=== PATIENT | male | born 1945 | race Caucasian/White ===

== ENCOUNTER → 2016-07-26 | Outpatient (CLI) | payer MEDICARE, BC ==
--- NOTE | ~2016-07-26 | PUL ---
PATIENT'S NAME: ETHEL HIGGINS [facility] AGE: 71 Y [address] ROOM: [place] [address] LOCATION: [facility] ADMIT DATE: 07/26/2016 Pulmonary DISCHARGE DATE: FAMILY PHYSICIAN: Andry Hi MD ATTENDING PHYSICIAN: Porter Suarez NAME OF PROCEDURE: Sleep study PROCEDURE DATE: 07/26/16 TECH: KINZA Bauman TEST #: [facility] [place]# [id number] TECHNICAL PARAMETERS: The patient was studied using [employer] 10/20 measuring system. While the patient was studied, there was continuous monitoring of EEG (8 leads), EOG (2 leads), EKG (3 leads), submental EMG (3 leads), tibial (4 leads), respiratory inductive plethysmography (RIP) for thoracic and abdominal effort, oral and nasal airflow with a thermocouple and pressure transducer, and oximetry. The statistical technician also performed visual and auditory observations noting things like body position, patient's status, breath sounds, artifact, snoring level and patient comments. Continuous sound was monitored using a 2-way speaker system and video monitoring was performed using an infrared camera. Review of the entire study was performed epoch by epoch utilizing a single epoch and multiple epoch capability sleep system. MEDICAL HISTORY: The patient is a 70-year-old gentleman with daytime sleepiness and snoring. SLEEP STAGE SUMMARY: The patient was studied for 509 minutes of which he slept 395 minutes. He fell asleep in 6 minutes and slept for 77% of the night. Sleep architecture revealed a decline in slow wave and REM sleep. RESPIRATORY SUMMARY: Oxygen saturations ranged from 88-95%. This study was done to titrate CPAP which was started at 6 cm and titrated to 13 cm. Best level of control. occurred with CPAP at 9 cm with the patient sleeping on his side. When the patient. returned to his back there were a significantly increased number of apneas and there was insufficient time for complete CPAP titration with the patient on his back. EKG SUMMARY: Average heart rate during sleep 66 beats per minute. A paced rhythm was noted throughout the study. LIMB MOVEMENT SUMMARY: No clinically relevant periodic limb movements were noted. PATIENT'S NAME: ETHEL HIGGINS [facility] AGE: 71 Y [address] ROOM: [place] [address] LOCATION: [facility] ADMIT DATE: 07/26/2016 Pulmonary DISCHARGE DATE: FAMILY PHYSICIAN: Andry Hi MD ATTENDING PHYSICIAN: Porter Suarez SUMMARY: Obstructive sleep apnea incomplete titration of CPAP. Incomplete titration of CPAP, due to the patient returning to his back late in the study. PLAN: Would consider either auto-titrating CPAP with a minimum pressure of 7 cm maximum pressure of 20 cm, or a repeat study for more complete PAP titration. Patient will receive results from the ordering provider. MD RADHA MYERS/ /[id number] dtt: 07/31/16 0721 , Yong Eagle. dtd: 07/28/16 1532
== END | disposition disaster alternative care site (69) ==
LOC: GSLP 20:08
DX: G47.10 Hypersomnia, unspecified (principal); G47.36 Sleep related hypoventilation in conditions classified elsewhere; I10 Essential (primary) hypertension; R06.02 Shortness of breath; I25.10 Atherosclerotic heart disease of native coronary artery without angina pectoris; G47.33 Obstructive sleep apnea (adult) (pediatric)